=== PATIENT | female | born 1985 | race Two or more races ===

== ENCOUNTER 2018-02-08 08:58 | Emergency (ER) | payer OTHER ==
[~2018-02-08] VITALS: Ht 162.6 cm; Wt 71.2 kg
[~2018-02-08 08:58] MED LIST: ALBU90OI INH; ALBU90OI61 INH; ALPR.5 PO; CETI10 PO; CETI5; CHOL10002 PO; CODGUAEL PO; CYCL10 PO; DIAZ5 PO; DIPH25; DIPH50 PO; FAMO40 PO; FLUO10 PO; HYDACE5 PO; HYDR1TAB94 PO; IBUP600 PO; LEVO750 PO; LEVSOD100 PO; LEVSOD125 PO; LEVSOD50 PO; LEVSOD75 PO; METPRE4DP PO; MINO100; MONT10T PO; MULVITMINE; NAPR500 PO; NAPR550 PO; Naprosyn500 MG PO; Norco 5-325 Ta1 EACH PO; OXYACE5T PO; Omeprazole20 M1; PROM25 PO; Percocet 5-3251 EACH PO; Phenergan25 M1 PO; Prednisone20 MG PO; Prilosec Otc20 MG PO; RXHYD5325 PO; RXNAPNA550 PO; SUCR1 PO; SULTRIDS PO; YOHI5.4; Zithromax250 MG PO; Zofran Odt4 MG SL; birth control
[2018-02-08] MEDS ORDERED: ALBU90OI6 INH (09:26)
[2018-02-08] MEDS ORDERED: BRINTELLIX10 MG PO (09:26)
[2018-02-08] MEDS ORDERED: ALPR1 PO (09:27)
[2018-02-08] MEDS ORDERED: Prednisone20 MG PO (10:03)
[2018-02-08] MEDS ORDERED: ALBU90OI INH (10:03)
== END 2018-02-08 10:35 | disposition home or self-care (01) ==
LOC: ER 08:58
DX: J45.901 Unspecified asthma with (acute) exacerbation (principal); F41.9 Anxiety disorder, unspecified; Z91.018 Allergy to other foods; Z88.8 Allergy status to other drugs, medicaments and biological substances; Z91.040 Latex allergy status; Z79.899 Other long term (current) drug therapy; Z87.891 Personal history of nicotine dependence; Z79.51 Long term (current) use of inhaled steroids
CPT/HCPCS: 94640; 99283

== ENCOUNTER 2020-01-18 17:02 | Emergency (ER) | payer OTHER ==
[~2020-01-18] VITALS: Ht 157.5 cm; Wt 77.1 kg
[~2020-01-18 17:02] MED LIST changes: +ALBU90OI6 INH; +ALPR1 PO; +BRINTELLIX10 MG PO
[2020-01-18] MEDS ORDERED: Ventolin/Prove6.7 GM INH (17:57)
[2020-01-18] MEDS ORDERED: LEVSOD112 PO (17:57)
[2020-01-18] MEDS ORDERED: Alprazolam1 MG PO (17:57)
[2020-01-18] MEDS ORDERED: Norco 5-325 Ta1 EACH PO ×2 (20:55→21:12)
[2020-01-18] MEDS ORDERED: Robaxin-750750 MG PO ×2 (20:55→21:12)
== END 2020-01-18 21:17 | disposition home or self-care (01) ==
LOC: ER 17:02
DX: S09.90XA Unspecified injury of head, initial encounter (principal); S16.1XXA Strain of muscle, fascia and tendon at neck level, initial encounter; S70.01XA Contusion of right hip, initial encounter; M62.838 Other muscle spasm; M79.601 Pain in right arm; E03.9 Hypothyroidism, unspecified; F41.9 Anxiety disorder, unspecified; J45.909 Unspecified asthma, uncomplicated; Z91.018 Allergy to other foods; Z88.8 Allergy status to other drugs, medicaments and biological substances; Z91.040 Latex allergy status; Z79.899 Other long term (current) drug therapy; Z79.51 Long term (current) use of inhaled steroids; W19.XXXA Unspecified fall, initial encounter
CPT/HCPCS: 36415; 70450; 72070; 72100; 72125; 73030; 73090; 73502; 84703; 96374; 96375; 99284-25; A9270; J1170; J2405; L0160

== ENCOUNTER 2021-02-18 18:28 | Emergency (ER) | payer OTHER ==
[~2021-02-18] VITALS: Ht 160 cm; Wt 95.7 kg
[~2021-02-18 18:28] MED LIST changes: +Alprazolam1 MG PO; +BRINTELLIX20 MG PO; +LEVSOD112 PO; +MAGNESIUM PO; +PSEU120ER PO; +Robaxin-750750 MG PO; +VITAMIN D310 MC4 PO; +Ventolin/Prove6.7 GM INH
== END 2021-02-18 21:03 | disposition home or self-care (01) ==
LOC: ER 18:28
DX: J06.9 Acute upper respiratory infection, unspecified (principal); E03.9 Hypothyroidism, unspecified; J45.909 Unspecified asthma, uncomplicated; Z79.899 Other long term (current) drug therapy; Z79.890 Hormone replacement therapy; Z87.891 Personal history of nicotine dependence; Z91.018 Allergy to other foods; Z88.8 Allergy status to other drugs, medicaments and biological substances; Z91.040 Latex allergy status; Z88.1 Allergy status to other antibiotic agents; Z20.822 Contact with and (suspected) exposure to COVID-19
CPT/HCPCS: 99284

== ENCOUNTER 2022-03-25 06:07 | Day surgery (SDC) | payer OTHER ==
[~2022-03-25] VITALS: Ht 157.5 cm; Wt 82.0 kg
[~2022-03-25 06:07] MED LIST changes: +ALBU8HFA2 INH; +ALPR1; +Buspirone HCl15 MG PO; +Flovent 44 mc10.6 GM INH; +Zovirax Cream 5%2 GM
[2022-03-25] MEDS ORDERED: CATAPRES0.1 MG PO (06:40)
--- NOTE | 2022-03-25 07:08 | NUR ---
Ambulatory in Day Surgery. History, Chart, Medications and Allergies reviewed before start of procedure. Lungs clear T/O to Auscultation. Patient States Post-Procedure ride home has been arranged WITH [facility].
--- NOTE | 2022-03-25 08:06 | NUR ---
03/25/22 0806 Gino Barrios NO ABX PER SURGEON
--- NOTE | 2022-03-25 09:24 | NUR ---
REPORT FROM GENO SRIVASTAVA RN. PT TOLERATING PO FLUIDS AND FOOD, ABLE TO REPOSITION SELF IN BED. AT BEDSIDE. PT HAS THREE INCISION SITES ON ABDOMEN. ONE IN UMBILICUS, TWO ON LEFT SIDE ABDOMEN. ALL COVERED WITH STERI STRIPS. SOME SCANT SEROSANGUINEOUS DISCHARGE ON UMBILLICUS DRESSING.
--- NOTE | 2022-03-25 10:14 | NUR ---
Patient up to Ambulate independently. Gait steady. Discharge instructions reviewed with patient. Patient verbalizes understanding. Copy given to patient to take home. Patient States Post-Procedure ride home has been arranged. Discharged via wheelchair to private car for ride home. INCISION SITES TO ABDOMEN HAD SCANT AMOUNT OF SEROSANGUINEOUS DRAINAGE ON STERI-STRIPS. STERI-STRIPS INTACT OTHERWISE. NO SWELLING, BRUISING, REDNESS NOTED. ALL BELONGINGS RETURNED TO PATIENT.
== END 2022-03-25 23:48 | disposition home or self-care (01) ==
LOC: ORSCMMR 06:07 → ORD 07:30 → ORSCMMR 23:48 → ORD 04-10 09:15
PROVIDERS: Obstetrics & Gynecology
PROC: 0DNW4ZZ Release Peritoneum, Percutaneous Endoscopic Approach (ICD-10-PCS; principal; 2022-03-25 07:30)
PROC: 0UT74ZZ Resection of Bilateral Fallopian Tubes, Percutaneous Endoscopic Approach (ICD-10-PCS; principal; 2022-03-25 07:30)
DX: D39.11 Neoplasm of uncertain behavior of right ovary (principal); N83.8 Other noninflammatory disorders of ovary, fallopian tube and broad ligament; N73.6 Female pelvic peritoneal adhesions (postinfective); J45.909 Unspecified asthma, uncomplicated; Z86.16 Personal history of COVID-19; E03.9 Hypothyroidism, unspecified; E66.9 Obesity, unspecified; Z68.33 Body mass index [BMI] 33.0-33.9, adult; Z79.899 Other long term (current) drug therapy
CPT/HCPCS: 88302; A9270; J1100; J1170; J1885; J2250; J2370; J2405; J2704; J3010; J7120

== ENCOUNTER → 2023-02-04 | Outpatient (CLI) | payer OTHER ==
[~2023-02-04] MED LIST changes: +CATAPRES0.1 MG PO
[2023-02-04 12:05] LABS: BASOPHILS ABSOLUTE AUTO 0.02 K/mm3 (0.00-0.23); BASOPHILS PERCENT AUTO 0 % (0-2); EOSINOPHILS ABSOLUTE AUTO 0.04 K/mm3 (0.00-0.68); EOSINOPHILS PERCENT AUTO 1 % (0-6); Hematocrit 37.3 % (33.0-51.0); Hemoglobin 13.6 g/dL (11.5-16.0); IMMATURE GRAN ABSOLUTE AUTO 0.02 K/mm3 (0.00-0.10); IMMATURE GRAN PERCENT AUTO 0 % (0-1); LYMPHOCYTES PERCENT AUTO 42 % (21-46); MONOCYTES PERCENT AUTO 7 % (4-13); Mean Corpuscular HGB 29.6 pg (26.0-34.0); Mean Corpuscular HGB Conc 36.5 g/dL (31.5-36.5); Mean Corpuscular Volume 81 fL (80-100); Mean Platelet Volume 9.3 fL (9.1-12.4); NEUTROPHILS ABSOLUTE AUTO 2.26 K/mm3 (1.96-9.15); NEUTROPHILS PERCENT AUTO 50 % (41-73); Platelet Count 348 K/mm3 (150-400); RDW Coefficient Variation 13.4 % (11.7-14.2); RDW Standard Deviation 39.3 fL (35.1-46.3); Red Blood Cell Count 4.59 M/mm3 (3.80-5.20); White Blood Cell Count 4.54 K/mm3 (4.00-11.30)
[2023-02-04 12:17] LABS: Albumin, Blood 3.8 g/dL (3.4-5.0); Albumin/Globulin Ratio 1.1 (0.8-1.8); Bilirubin, Total 0.2 mg/dL (0.1-1.0); Bun/Creatinine Ratio 16.3 (12.0-20.0); Calcium, Blood 8.7 mg/dL (8.5-10.1); Creatinine, Blood 0.8 mg/dL (0.40-1.00); Globulin, Blood 3.5 g/dL (2.2-4.0); Potassium, Blood 3.9 mmol/L (3.5-5.5); Total Protein, Blood 7.3 g/dL (6.4-8.2)
== END | disposition home or self-care (01) ==
LOC: LAB 11:58 → LAB SHORT 11:58
PROVIDERS: Chiropractor
DX: R10.13 Epigastric pain (principal)
CPT/HCPCS: 80053; 83690; 84484; 85025; 85379